=== PATIENT | male | born 2000 | race African-American/Black ===

== ENCOUNTER 2022-03-07 03:43 | Emergency (ER) | payer MEDICAID ==
[~2022-03-07] VITALS: Ht 170.2 cm; Wt 68.0 kg
[2022-03-07 03:46] VITALS: BP 122/82
[2022-03-07] MEDS ORDERED: TOPUD PO (11:17)
== END 2022-03-07 04:26 | disposition home or self-care (01) ==
LOC: ER 03:43
DX: K02.9 Dental caries, unspecified (principal)
CPT/HCPCS: 99283

== ENCOUNTER 2022-03-07 06:45 | Emergency (ER) | payer MEDICAID ==
[~2022-03-07] VITALS: Ht 182.9 cm; Wt 73.0 kg
[2022-03-07 10:01] LABS: CHLORIDE 109 mEq/L (98-107)
[2022-03-07 10:06] LABS: BASOPHILS % 0.7 % (0.0-2.0); EOSINOPHILS % 0.5 % (0.0-5.0); HEMATOCRIT. 42.5 % (42.0-52.0); HEMOGLOBIN. 13.8 g/dL (14.0-18.0); LYMPHOCYTES % 17.1 % (20.0-50.0); MEAN CORPUSCULAR HEMOGLOBIN 23.4 pg (28.0-32.0); MEAN CORPUSCULAR VOLUME 72.1 fL (80.0-94.0); MEAN PLATELET VOLUME 7.4 fl (7.4-10.4); MONOCYTES % 5.4 % (2.0-8.0); NEUTROPHILS % 76.3 % (40.0-76.0); PLATELET 280 x1000/uL (130-400); RED BLOOD CELL COUNT 5.89 mill/uL (4.7-6.1); RED CELL DISTRIBUTION WIDTH 14.2 % (11.6-14.6)
[2022-03-07] MEDS ORDERED: TOPUD PO (11:17)
[2022-03-07 11:28] VITALS: BP 127/72
== END 2022-03-07 11:29 | disposition home or self-care (01) ==
LOC: ER 06:45
DX: R07.89 Other chest pain (principal)
CPT/HCPCS: 36415; 71045; 80053; 83880; 84484; 85025; 93005; 99285